=== PATIENT | female | born 2000 | race American Indian/Alaskan Native ===

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

== ENCOUNTER 2019-01-20 21:12 | Emergency (ER) | payer OTHER, MEDICAID ==
[2019-01-20 21:18] VITALS: BP 121/81
== END 2019-01-20 21:30 | disposition left against medical advice (07) ==
LOC: ED 21:12
DX: R10.9 Unspecified abdominal pain (principal); Z53.21 Procedure and treatment not carried out due to patient leaving prior to being seen by health care provider